=== PATIENT | male | born 1965 | race African-American/Black ===

== ENCOUNTER → 2021-09-14 | Emergency (ER) | payer OTHER ==
[~2021-09-14] VITALS: Ht 193 cm; Wt 95.2 kg
[~2021-09-14] MED LIST: TRULICITY0.75 MG/0. SQ
== END ==
LOC: ED 13:02
DX: S93.402A Sprain of unspecified ligament of left ankle, initial encounter (principal); M25.562 Pain in left knee; Z79.899 Other long term (current) drug therapy; V58.5XXA Driver of pick-up truck or van injured in noncollision transport accident in traffic accident, initial encounter
CPT/HCPCS: 36415; 70450; 71260; 72125; 73560; 73610; 74177; 80053; 85025; 99284-25; G0480; J1885; Q9967